=== PATIENT | male | born 1960 | race Caucasian/White ===

== ENCOUNTER 2017-07-04 00:04 | Inpatient (IN) ==
[2017-07-04] MEDS ORDERED: SODIUM CHLORIDE 0.9% 1,000 ML IV STA (00:35)
[2017-07-04] MEDS ORDERED: HYDROmorphone 2 MG/1 ML VIAL IV STA ×2 (00:35→01:57)
[2017-07-04] MEDS ORDERED: ONDANSETRON 4 MG/2 ML VIAL IV STA ×2 (00:35→01:57)
[2017-07-04] MEDS ORDERED: PANTOPRAZOLE 40 MG VIAL IV STA (00:35)
[2017-07-04] MEDS ORDERED: PANTOPRAZOLE 40 MG VIAL IV ONE (00:49)
[2017-07-04] MEDS ORDERED: ONDANSETRON 4 MG/2 ML VIAL ONE (00:49)
[2017-07-04] MEDS ORDERED: HYDROmorphone 2 MG/1 ML VIAL ONE (00:50)
[2017-07-04 01:15] LABS: Basophils % 0.2 % (0.0-0.8); Eosinophils % 0.1 % (0.00-10.9); Hematocrit 45.5 VOL% (42.0-52.0); Hemoglobin 15.9 GM/DL (14.0-18.0); Immature Granulocytes % 0.8 %; Immature Granulocytes Absolute 0.14 #; Lymphocytes # 1.3 10*3/uL (1.4-4.0); Lymphocytes % 7.4 % (21.2-54.2); Mean Corpuscular HGB Conc 34.9 GM/DL (32-36); Mean Corpuscular Hemoglobin 32 PG (27-34); Mean Corpuscular Volume 90.5 FL (87-102); Mean Platelet Volume 9.8 FL (9.6-12.0); Monocytes # 1.7 10*3/uL (0.11-0.8); Monocytes % 9.5 % (1.7-12.7); Neutrophils # 14.2 10*3/uL (1.4-7.4); Platelet Count 213 T/CUMM (130-400); Red Blood Count 5.03 MC/CUMM (3.8-5.5); Red Cell Distribution Width 12.4 % (9.3-17.3); White Blood Count 17.4 T/CUMM (4-12)
[2017-07-04 01:48] LABS: Alanine Aminotransferase 21 U/L (16-61); Albumin 4.3 G/DL (3.4-5.0); Alkaline Phosphatase 85 U/L (45-117); Amylase 33 U/L (25-115); Aspartate Amino Transferase 29 U/L (0-37); Blood Urea Nitrogen 10 MG/DL (7-18); Calcium 8.9 MG/DL (8.5-10.1); Glucose 133 MG/DL (74-106); Osmolality,Calculated 277.5 MOS/KG (273-304); Potassium 3.8 MMOL/L (3.5-5.1); Sodium 139 MMOL/L (136-145); Total Protein 7.4 G/DL (6.4-8.3); Troponin I Only < 0.015 NG/ML (0.00-0.045)
[2017-07-04] MEDS ORDERED: cefOXitin 2,000 MG in SYRINGE 1 EACH IV ONE (02:00)
[2017-07-04] MEDS ORDERED: ONDANSETRON 4 MG/2 ML VIAL IV PRN (02:28)
[2017-07-04 02:32] LABS: Apearance,Urine CLEAR (Clear); Bilirubin,Urine Negative (Negative); Blood, Urine Small mg/dL (Negative); Glucose,Urine (UA) 50 mg/dL (Negative); Ketones,Urine 20 mg/dL (Negative); Mucus,Urine Occasional /LPF (Occasional); Nitrite,Urine Negative (Negative); Protein,Urine 30 MG/DL; RBC,Urine 12 /HPF (0-4); Squamous Epithelial Cell,Urine Occasional /HPF (0-10); Urine Color Yellow (Yellow); Urine Specific Gravity 1.024 (1.001-1.035); WBC,Urine <1 /HPF (0-6)
[2017-07-04] MEDS: SODIUM CHLORIDE 0.9% 1,000 ML IV SCH ×3 (03:17→20:26)
[2017-07-04] MEDS: HYDROmorphone 2 MG/1 ML VIAL IV PRN ×2 (05:30→13:27)
[2017-07-04] MEDS ORDERED: PIPERACILLIN/TAZOBACTAM 4,500 MG in SODIUM CHLORIDE 0.9% 100 ML IV SCH (07:00)
[2017-07-04] MEDS ORDERED: KETOROLAC 30 MG/1 ML VIAL IV ONE (07:37)
[2017-07-04] MEDS: PIPERACILLIN/TAZOBACTAM 3,375 MG in SODIUM CHLORIDE 0.9% 100 ML IV SCH ×2 (09:44→15:38)
[2017-07-04] MEDS: PANTOPRAZOLE 40 MG VIAL IV SCH (09:45)
[2017-07-04] MEDS: KETOROLAC 15 MG/1 ML VIAL IV SCH ×2 (15:40→20:38)
[2017-07-05] MEDS: PIPERACILLIN/TAZOBACTAM 3,375 MG in SODIUM CHLORIDE 0.9% 100 ML IV SCH ×4 (01:05→23:33)
[2017-07-05] MEDS: KETOROLAC 15 MG/1 ML VIAL IV SCH ×4 (01:05→21:03)
[2017-07-05 04:47] LABS: Basophils % 0.2 % (0.0-0.8); Eosinophils % 0.3 % (0.00-10.9); Hematocrit 39.8 VOL% (42.0-52.0); Hemoglobin 14.2 GM/DL (14.0-18.0); Immature Granulocytes % 0.7 %; Immature Granulocytes Absolute 0.09 #; Lymphocytes # 1.2 10*3/uL (1.4-4.0); Lymphocytes % 9.1 % (21.2-54.2); Mean Corpuscular HGB Conc 35.7 GM/DL (32-36); Mean Corpuscular Hemoglobin 32 PG (27-34); Mean Corpuscular Volume 90.9 FL (87-102); Mean Platelet Volume 10.3 FL (9.6-12.0); Monocytes # 1.4 10*3/uL (0.11-0.8); Monocytes % 10.4 % (1.7-12.7); Neutrophils # 10.7 10*3/uL (1.4-7.4); Neutrophils % 79.3 % (38.7-73.9); Platelet Count 175 T/CUMM (130-400); Red Blood Count 4.38 MC/CUMM (3.8-5.5); Red Cell Distribution Width 12.8 % (9.3-17.3); White Blood Count 13.5 T/CUMM (4-12)
[2017-07-05 05:09] LABS: Bilirubin,Total 4.1 MG/DL (0.2-1.0); Calcium 7.9 MG/DL (8.5-10.1); Osmolality,Calculated 283.1 MOS/KG (273-304); Potassium 3.9 MMOL/L (3.5-5.1); Total Protein 5.7 G/DL (6.4-8.3)
[2017-07-05] MEDS: SODIUM CHLORIDE 0.9% 1,000 ML IV SCH ×3 (05:09→23:34)
[2017-07-05 05:20] LABS: Albumin 2.9 G/DL (3.4-5.0); Bilirubin,Direct 0.52 MG/DL (0.0-0.20); Bilirubin,Indirect 3.8 MG/DL (0.0-1.0); Bilirubin,Total 4.3 MG/DL (0.2-1.0); Total Protein 5.8 G/DL (6.4-8.3)
[2017-07-05] MEDS: PANTOPRAZOLE 40 MG VIAL IV SCH (08:39)
[2017-07-05] MEDS ORDERED: TISSUE ADHESIVE 1 EACH APPLICATOR TOP ONE (08:39)
[2017-07-05] MEDS ORDERED: BUPIVACAINE 0.25% 50 ML VIAL ONE (08:40)
[2017-07-05] MEDS ORDERED: MIDAZOLAM 2 MG/2 ML VIAL ONE (10:33)
[2017-07-05] MEDS ORDERED: HYDROmorphone 2 MG/1 ML VIAL ONE (10:33)
[2017-07-05] MEDS ORDERED: ONDANSETRON 4 MG/2 ML VIAL ONE (10:33)
[2017-07-05] MEDS ORDERED: fentaNYL 100 MCG/2 ML VIAL ONE (10:33)
[2017-07-05] MEDS ORDERED: GLYCOPYRROLATE 0.4 MG/2 ML VIAL ONE (10:33)
[2017-07-05] MEDS ORDERED: PROPOFOL 200 MG/20 ML VIAL IV ONE (10:33)
[2017-07-05] MEDS ORDERED: SEVOFLURANE 1 UNIT/15 MINUTE INH ONE (10:33)
[2017-07-05] MEDS ORDERED: NEOSTIGMINE 10 MG/10 ML VIAL ONE (10:34)
[2017-07-05] MEDS ORDERED: LACTATED RINGERS 1,000 ML IV ONE (10:34)
[2017-07-05] MEDS ORDERED: ROCURONIUM 100 MG/10 ML VIAL IV ONE (10:34)
[2017-07-05] MEDS: ACETAMINOPHEN 325 MG TABLET PO PRN ×2 (12:43→23:33)
[2017-07-05] MEDS: KETOROLAC 30 MG/1 ML VIAL IV SCH (21:04)
[2017-07-06] MEDS: SODIUM CHLORIDE 0.9% 1,000 ML IV SCH ×2 (01:24→14:21)
[2017-07-06] MEDS: KETOROLAC 30 MG/1 ML VIAL IV SCH ×4 (04:05→21:33)
[2017-07-06 05:52] LABS: Basophils % 0.4 % (0.0-0.8); Eosinophils # 0.1 10*3/uL (0.0-0.87); Eosinophils % 1.1 % (0.00-10.9); Hematocrit 36.5 VOL% (42.0-52.0); Hemoglobin 12.8 GM/DL (14.0-18.0); Immature Granulocytes % 0.6 %; Immature Granulocytes Absolute 0.06 #; Lymphocytes # 1.4 10*3/uL (1.4-4.0); Lymphocytes % 13.9 % (21.2-54.2); Mean Corpuscular HGB Conc 35.1 GM/DL (32-36); Mean Corpuscular Hemoglobin 32 PG (27-34); Mean Corpuscular Volume 92.2 FL (87-102); Mean Platelet Volume 10.2 FL (9.6-12.0); Monocytes # 1.2 10*3/uL (0.11-0.8); Monocytes % 12.4 % (1.7-12.7); Neutrophils # 7.1 10*3/uL (1.4-7.4); Neutrophils % 71.6 % (38.7-73.9); Platelet Count 178 T/CUMM (130-400); Red Blood Count 3.96 MC/CUMM (3.8-5.5); Red Cell Distribution Width 12.9 % (9.3-17.3); White Blood Count 9.9 T/CUMM (4-12)
[2017-07-06 06:23] LABS: Albumin 2.6 G/DL (3.4-5.0); Bilirubin,Total 2.4 MG/DL (0.2-1.0); Calcium 8.2 MG/DL (8.5-10.1); Potassium 3.7 MMOL/L (3.5-5.1); Total Protein 5.3 G/DL (6.4-8.3)
[2017-07-06] MEDS: PANTOPRAZOLE 40 MG VIAL IV SCH (09:28)
[2017-07-06] MEDS: PIPERACILLIN/TAZOBACTAM 3,375 MG in SODIUM CHLORIDE 0.9% 100 ML IV SCH ×3 (09:28→23:40)
[2017-07-07 05:10] LABS: Basophils % 0.3 % (0.0-0.8); Eosinophils # 0.3 10*3/uL (0.0-0.87); Hematocrit 35.8 VOL% (42.0-52.0); Hemoglobin 12.2 GM/DL (14.0-18.0); Immature Granulocytes % 0.4 %; Immature Granulocytes Absolute 0.03 #; Lymphocytes # 1.3 10*3/uL (1.4-4.0); Lymphocytes % 19.6 % (21.2-54.2); Mean Corpuscular HGB Conc 34.1 GM/DL (32-36); Mean Corpuscular Hemoglobin 32 PG (27-34); Mean Corpuscular Volume 93.5 FL (87-102); Monocytes # 0.9 10*3/uL (0.11-0.8); Monocytes % 13.3 % (1.7-12.7); Neutrophils # 4.2 10*3/uL (1.4-7.4); Neutrophils % 62.4 % (38.7-73.9); Platelet Count 203 T/CUMM (130-400); Red Blood Count 3.83 MC/CUMM (3.8-5.5); Red Cell Distribution Width 12.6 % (9.3-17.3); White Blood Count 6.7 T/CUMM (4-12)
[2017-07-07] MEDS: KETOROLAC 30 MG/1 ML VIAL IV SCH ×2 (05:34→09:48)
[2017-07-07] MEDS: SODIUM CHLORIDE 0.9% 1,000 ML IV SCH ×2 (05:34→09:46)
[2017-07-07 05:38] LABS: Albumin 2.5 G/DL (3.4-5.0); Bilirubin,Direct 0.42 MG/DL (0.0-0.20); Bilirubin,Indirect 1.2 MG/DL (0.0-1.0); Bilirubin,Total 1.6 MG/DL (0.2-1.0); Calcium 8.3 MG/DL (8.5-10.1); Potassium 3.7 MMOL/L (3.5-5.1); Total Protein 5.4 G/DL (6.4-8.3)
[2017-07-07 07:52] VITALS: BP 157/98
[2017-07-07] MEDS: PIPERACILLIN/TAZOBACTAM 3,375 MG in SODIUM CHLORIDE 0.9% 100 ML IV SCH (09:51)
== END 2017-07-07 11:00 | disposition home or self-care (01) | DRG 418 ==
LOC: N.ED 00:04 → N.EDINP 01:26 → N.3E 02:25
PROVIDERS: ADMIT Surgery; ATTEND Surgery
PROC: LAPCHOL (2017-07-05 08:58)